=== PATIENT | female | born 1995 | race African-American/Black ===

== ENCOUNTER 2023-12-06 21:33 | Emergency (ER) | payer MEDICAID ==
[~2023-12-06] VITALS: Ht 165.1 cm; Wt 129.3 kg
[2023-12-06 22:05] VITALS: BP 165/95
[2023-12-06] MEDS ORDERED: Ciprofloxacin Hydrochloride 0.3% OPHTHLAMIC BOTTLE OPH ONE (22:05)
== END 2023-12-06 22:22 | disposition home or self-care (01) ==
LOC: ED 21:33
DX: S05.01XA Injury of conjunctiva and corneal abrasion without foreign body, right eye, initial encounter (principal); Z98.890 Other specified postprocedural states; X58.XXXA Exposure to other specified factors, initial encounter; Y93.89 Activity, other specified; Y92.89 Other specified places as the place of occurrence of the external cause; Y99.8 Other external cause status